=== PATIENT | male | born 1990 | race Hispanic/Latino ===

== ENCOUNTER 2019-11-23 19:40 | Emergency (ER) | payer SELFPAY ==
[2019-11-23] MEDS ORDERED: HYDROCODONE/APAP 10/325 TAB ONE (20:05)
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
[2019-11-23 20:52] VITALS: O2SAT 100
[2019-11-23 20:53] VITALS: BP 127/91; TEMP 98.7
--- NOTE | 2019-11-23 21:48 | RAD REPORT ---
EXAM DESCRIPTION: RAD - Shoulder Left 2 View - 11/23/2019 8:20 pm CLINICAL HISTORY: PAIN COMPARISON: No comparisons TECHNIQUE: Internal and external rotation views of the left shoulder were obtained. FINDINGS: Comminuted midshaft clavicle fracture is present. Medial fracture fragment is displaced cuevas periorly 1 full shaft width. AC joint is normal. No fracture or dislocation of the proximal humerus. No scapula fracture. Upper chest shows no acute f inding. Delete select IMPRESSION: Comminuted midshaft left clavicle fracture as detailed.
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
== END 2019-11-23 20:45 | disposition home or self-care (01) ==
LOC: ER 19:40
DX: S42.022A Displaced fracture of shaft of left clavicle, initial encounter for closed fracture (principal); V86.55XA Driver of 3- or 4- wheeled all-terrain vehicle (ATV) injured in nontraffic accident, initial encounter; Y93.89 Activity, other specified; Y92.9 Unspecified place or not applicable
CPT/HCPCS: 71045; 99284

== ENCOUNTER 2024-06-27 23:35 | Emergency (ER) | payer SELFPAY, OTHER ==
[2024-06-28] MEDS ORDERED: IBUPROFEN 400 MG TAB ONE (00:08)
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
[2024-06-28 02:28] VITALS: TEMP 98
[2024-06-28 02:29] VITALS: BP 130/84; O2SAT 99
--- NOTE | 2024-06-28 05:55 | RAD REPORT ---
EXAM: Shoulder Left 2+ Views XR Left Shoulder 2 Views 06/28/2024 at 12: 19 AM HISTORY: Pain COMPARISON: Left Shoulder 2 Views 11/23/2019 report without images TECHNIQUE: Left Shoulder 2 Views FINDINGS: No acute fracture or dislocation. No significant sclerotic/lytic bone lesion. ORIF hardware consisting of plate and attached bone screws at left clavicle. Joint spaces unremarkable. Soft tissues unremarkable. IMPRESSION: Left clavicle ORIF hardware. Electronically signed by: Jorge Esteban MD 06/28/2024 01:[address] [facility] Due to temporary technical issues with the PACS/[employer] reporting system, reports are being jenny d by the in-house radiologist without review as a courtesy to ensure prompt reporting the interpreting radiologist is fully responsible for the content of the report. Transcribed Date/Time: 06/28/2024 5:54 AM
== END 2024-06-28 02:14 | disposition home or self-care (01) ==
LOC: ER 23:35
DX: M25.512 Pain in left shoulder (principal); V49.40XA Driver injured in collision with unspecified motor vehicles in traffic accident, initial encounter
CPT/HCPCS: 99283